=== PATIENT | female | born 1955 | race Caucasian/White ===

== ENCOUNTER → 2016-07-18 | Outpatient (CLI) | payer BC ==
--- NOTE | 2016-07-18 14:26 | MAMMOGRAPHY REPORT ---
BILATERAL DIGITAL SCREENING MAMMOGRAM WITH CAD: 07/18/2016 CLINICAL HISTORY: Routine screening. Patient has no complaints. TECHNIQUE: Current study was also evaluated with a Computer Aided Detection (CAD) system. Bilatera l CC and MLO views were obtained. COMPARISON: Comparison is made to exams dated: 07/08/2015 mammogram, 03/03/2014 mammogram - [facility], 12/17/2011 mammogram, 08/11/2010 mammogram, and 07/29/2009 mammogram - [facility]. BREAST COMPOSITION: The tissue of both breasts is extremely dense, which lowers the sensitivity of mammography. FINDINGS: No suspicious masses, calcifications, or areas of architectural distortion are noted in e ither breast. There has been no significant interval change compared to prior exams. IMPRESSION: ACR BI-RADS CATEGORY 1: NEGATIVE There is no mammographic evidence of malignancy. A 1 year screening mammogram is recommended. The p atient will receive written notification of the results. Approximately 10% of breast cancers are not detected with mammography. A negative mammographic repor t should not delay biopsy if a clinically suggestive mass is present. Zuri Rick M.D. /:07/18/2016 12:02:26 Office Machine Service Supervisor: Tanna HANNON(Reggie)(Juan)([place]), [facility] letter sent: Normal 1/2 BI-RADS Code: ACR BI-RADS Category 1: Negative
== END | disposition home or self-care (01) ==
LOC: C.MAMM 11:30
PROVIDERS: ATTEND Obstetrics & Gynecology
DX: Z12.31 Encounter for screening mammogram for malignant neoplasm of breast (principal)

== ENCOUNTER → 2017-07-24 | Outpatient (CLI) | payer OTHER ==
--- NOTE | 2017-07-24 15:40 | MAMMOGRAPHY REPORT ---
BILATERAL DIGITAL SCREENING MAMMOGRAM TOMOSYNTHESIS WITH CAD: 07/24/2017 CLINICAL HISTORY: Routine screening. Patient has no complaints. TECHNIQUE: Breast tomosynthesis in addition to standard 2D mammography was performed. Current study was also evaluated with a Computer Aided Detection (CAD) system. COMPARISON: Comparison is made to exams dated: 07/18/2016 mammogram, 07/08/2015 mammogram, 03/03/2014 [facility], 12/17/2011 mammogram, 08/11/2010 mammogram, and 07/29/2009 mammog johanne - [facility]. BREAST COMPOSITION: The tissue of both breasts is extremely dense, which lowers the sensitivity of m ammography. FINDINGS: No suspicious masses, calcifications, or areas of architectural distortion are noted in ei ther breast. There has been no significant interval change compared to prior exams. IMPRESSION: ACR BI-RADS CATEGORY 1: NEGATIVE There is no mammographic evidence of malignancy. A 1 year screening mammogram is recommended. The pa tient will receive written notification of the results. Approximately 10% of breast cancers are not detected with mammography. A negative mammographic report should not delay biopsy if a clinically suggestive mass is present. Zuri Rick M.D. /:07/24/2017 14:30:37 Business Analytics Director: Jessica BOWERS)(), [facility] letter sent: Normal 1/2 BI-RADS Code: ACR BI-RADS Category 1: Negative
== END | disposition home or self-care (01) ==
LOC: C.MAMM 13:58
PROVIDERS: ATTEND Obstetrics & Gynecology
DX: Z12.31 Encounter for screening mammogram for malignant neoplasm of breast (principal)

== ENCOUNTER → 2017-10-19 | Outpatient (CLI) | payer OTHER ==
--- NOTE | 2017-10-19 11:02 | DIAGNOSTIC IMAGING REPORT ---
RIGHT FIFTH TOE 3 VIEWS CLINICAL HISTORY: Fifth toe pain. FINDINGS: 3 views of the right fifth toe are obtained. No prior studies are available for comparison at the time of dictation. The skeletal structures are osteopenic. There is a nondistracted and minimally angulated fracture through the distal shaft of the fifth proximal phalanx. Mild overlying soft tissue edema is noted. No additional fracture is identified. The fifth metatarsophalangeal and interphalangeal joints appear maintained. IMPRESSION: Minimally angulated fracture through the distal shaft of the fifth proximal phalanx. Electronically signed by: Rich Leahy M.D. 10/19/2017 11:01 AM Dictated Date/Time: 10/19/2017 11:00 AM
== END | disposition home or self-care (01) ==
LOC: C.RAD1850 10:41
PROVIDERS: ATTEND Nurse Practitioner Family
DX: S92.514A Nondisplaced fracture of proximal phalanx of right lesser toe(s), initial encounter for closed fracture (principal); X58.XXXA Exposure to other specified factors, initial encounter

== ENCOUNTER → 2017-10-30 | Outpatient (CLI) | payer OTHER | END | disposition home or self-care (01) | LOC: C.RDSM 13:45 | PROVIDERS: ATTEND Podiatrist | DX: M20.60 Acquired deformities of toe(s), unspecified, unspecified foot (principal) ==

== ENCOUNTER → 2017-11-14 | Outpatient (CLI) | payer OTHER | END | disposition home or self-care (01) | LOC: C.RDSM 14:50 | PROVIDERS: ATTEND Orthopaedic Surgery Sports Medicine | DX: S92.919A Unspecified fracture of unspecified toe(s), initial encounter for closed fracture (principal); X58.XXXA Exposure to other specified factors, initial encounter ==

== ENCOUNTER → 2018-02-05 | Outpatient (CLI) | payer OTHER | END | disposition home or self-care (01) | LOC: C.RDSM 10:51 | PROVIDERS: ATTEND Orthopaedic Surgery Sports Medicine | DX: S92.502A Displaced unspecified fracture of left lesser toe(s), initial encounter for closed fracture (principal); X58.XXXA Exposure to other specified factors, initial encounter ==